=== PATIENT | male | born 1980 | race Caucasian/White ===

== ENCOUNTER 2017-02-28 12:59 | Outpatient (CLI) | payer OTHER ==
[2017-02-28] MEDS ORDERED: NORMAL SALINE 10 ML SYRINGE FLUSH IVP PRN (13:08)
[2017-02-28] MEDS ORDERED: LIDOCAINE W/ SODIUM BICARB 0.5 ML SYR ONE (13:10)
[2017-02-28] MEDS ORDERED: SODIUM CHLORIDE 0.9% IV ONE (13:15)
[2017-02-28] MEDS ORDERED: VEDOLIZUMAB IV ONE (13:15)
[2017-02-28 13:35] VITALS: RESP 14
[2017-02-28 13:42] LABS: HEMATOCRIT 39.6 % (42.0-52.0); HEMOGLOBIN 12.7 g/dL (14.0-18.0); MEAN CORPUSCULAR HEMOGLOBIN 24.7 PG (27-31); MEAN CORPUSCULAR HGB CONC 32.1 g/dL (33-37); MEAN PLATELET VOLUME 9.9 FL (7.4-12.2); RED BLOOD COUNT 5.14 10^6/uL (4.70-6.10)
[2017-02-28 14:12] VITALS: TEMP 98.3
[2017-02-28] MEDS ORDERED: NORMAL SALINE 100 ML IV SCH (14:15)
[2017-02-28 14:23] LABS: BLOOD UREA NITROGEN 11 mg/dL (7-22); BUN/CREATININE RATIO 15.71 (6-20); CALCIUM 9.3 mg/dL (8.7-10.7); EST GLOMERULAR FILTRATION > 60 (>60 ml/min/1.73m(2)); SERUM ALBUMIN 3.9 g/dL (3.5-4.8)
== END 2017-02-28 14:10 | disposition home or self-care (01) ==
LOC: IV THERAPY 12:59
PROVIDERS: ATTEND Personal Emergency Response Attendant
DX: K50.00 Crohn's disease of small intestine without complications (principal)
CPT/HCPCS: 80053; 85027; 96365; 99211; J7050

== ENCOUNTER 2017-03-07 18:27 | Emergency (ER) | payer OTHER ==
[2017-03-07] MEDS ORDERED: Sodium Chloride 0.9% 1,000 ML PRIMARY IV ONE (18:43)
[2017-03-07] MEDS ORDERED: ONDANSETRON 4 MG/2 ML VIAL IVP ONE (18:43)
[2017-03-07] MEDS ORDERED: MECLIZINE 25 MG CHEWABLE TABLET PO ONE (18:43)
[2017-03-07] MEDS ORDERED: fentaNYL Inj 100 MCG/2 ML VIAL IVP ONE (18:43)
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
[2017-03-07 18:52] LABS: BASOPHILS # (AUTO) 0.05 10*3/UL; BASOPHILS % (AUTO) 0.5 % (0-1); EOSINOPHILS # (AUTO) 0.04 10*3/UL; EOSINOPHILS % (AUTO) 0.4 % (0-8); HEMATOCRIT 40.9 % (42.0-52.0); HEMOGLOBIN 13.2 g/dL (14.0-18.0); LYMPHOCYTES # (AUTO) 2.58 10*3/uL; MEAN CORPUSCULAR HEMOGLOBIN 24.8 PG (27-31); MEAN CORPUSCULAR HGB CONC 32.3 g/dL (33-37); MEAN CORPUSCULAR VOLUME 76.7 FL (80-90); MEAN PLATELET VOLUME 10.2 FL (7.4-12.2); MONOCYTES # (AUTO) 0.58 10*3/UL (0.3-0.8); MONOCYTES % (AUTO) 5.7 % (5-15); NEUTROPHILS # (AUTO) 6.96 10*3/UL; RED BLOOD COUNT 5.33 10^6/uL (4.70-6.10)
[2017-03-07 18:58] LABS: PLATELET MORPHOLOGY COMMENT NORMAL MORPHOLOGY (NORM); RBC MORPHOLOGY COMMENT NORMAL MORPHOLOGY (NORM); WBC MORPHOLOGY COMMENT NORMAL MORPHOLOGY (NORM)
[2017-03-07 19:03] LABS: BLOOD UREA NITROGEN 13 mg/dL (7-22); BUN/CREATININE RATIO 14.44 (6-20); C-REACTIVE PROTEIN 1.3 mg/dL (0.0-0.9); CALCIUM 9.4 mg/dL (8.7-10.7); EST GLOMERULAR FILTRATION > 60 (>60 ml/min/1.73m(2)); MAGNESIUM 1.9 mg/dL (1.6-2.4); SERUM ALBUMIN 4.2 g/dL (3.5-4.8)
[2017-03-07 19:26] LABS: FREE T4 (FREE THYROXINE) 0.97 ng/dL (0.93-1.71)
--- NOTE | 2017-03-07 19:50 | DI ---
CT HEAD W/O CONTRAST,03/07/2017 6:43 PM: Clinical History: Dizziness Previous Exam: None at this facility. Findings: Multiple helically acquired CT images are obtained through the brain without contrast, and demonstrat e some age-related volume loss. There is no mass, hemorrhage or midline shift. The surrounding soft t issues and osseous structures are unremarkable. Impression: Normal CT head.
--- NOTE | 2017-03-07 19:54 | DI ---
[facility] CHEST X-RAY, 03/07/2017 6:43 PM : Clinical History: Chest pain Previous Exam: December 15, 2015 There is no acute soft tissue or bony abnormality. Heart size is normal. Lungs are clear. Mediastinal structures are normal. There are no pulmonary nodules. Reading: Normal chest x-ray.
[2017-03-07 20:29] VITALS: RESP 18; TEMP 97.7
--- NOTE | 2017-03-08 05:25 | EKG ---
[address] [address] Measurements Intervals Brewer Rate: 90 P: 72 DC: 152 QRS: 41 QRSD: 98 T: 81 QT: 329 QTc: 377 Interpretive Statements SINUS RHYTHM INTERPRETATION BASED ON A DEFAULT AGE OF 40 YEARS Compared to ECG 01/06/2016 12:48:47 No significant changes Electronically Signed On 03-08-17 08:15:57 MDT by Roshan Mobley MD [email or web address]
== END 2017-03-07 21:12 | disposition home or self-care (01) ==
LOC: ER 18:27
DX: R07.9 Chest pain, unspecified (principal); R42 Dizziness and giddiness; R06.02 Shortness of breath
CPT/HCPCS: 70450; 71010; 80053; 83735; 84439; 84443; 84484; 85025; 85379; 86140; 93005; 93010; 96361; 96374; 96375; 99284 ×2; J3010; J2405; J7030

== ENCOUNTER 2017-03-18 14:03 | Outpatient (CLI) | payer OTHER ==
[~2017-03-18 14:03] MED LIST: LIDOCAINE W/ SODIUM BICARB 0.5 ML SYR SUBD PRN; NORMAL SALINE 10 ML SYRINGE FLUSH IVP PRN; SODIUM CHLORIDE 0.9% IV PRN; VEDOLIZUMAB IV PRN
[2017-03-18 14:42] VITALS: RESP 20; TEMP 98
== END 2017-03-18 15:20 | disposition home or self-care (01) ==
LOC: IV THERAPY 14:03
PROVIDERS: ATTEND Internal Medicine Gastroenterology
DX: K50.00 Crohn's disease of small intestine without complications (principal)
CPT/HCPCS: 96365; 99211; J7050

== ENCOUNTER 2017-04-15 14:06 | Outpatient (CLI) | payer OTHER ==
[~2017-04-15 14:06] MED LIST changes: +SODIUM CHLORIDE 0.9% IV ONE; -SODIUM CHLORIDE 0.9% IV PRN; +VEDOLIZUMAB IV ONE; -VEDOLIZUMAB IV PRN
[2017-04-15 14:19] VITALS: RESP 18; TEMP 98.3
== END 2017-04-15 15:13 | disposition home or self-care (01) ==
LOC: IV THERAPY 14:06
PROVIDERS: ATTEND Internal Medicine Gastroenterology
DX: K50.00 Crohn's disease of small intestine without complications (principal)
CPT/HCPCS: 96365; 99211; J3380; J7050